=== PATIENT | male | born 1935 | race Two or more races ===

== ENCOUNTER 2020-07-03 13:17 | Emergency (ER) | payer OTHER ==
[~2020-07-03] VITALS: Ht 160 cm; Wt 54.4 kg
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
--- NOTE | 2020-07-03 13:30 | NUR ---
PT [phone]
--- NOTE | 2020-07-03 14:00 | NUR ---
PT IN CT
--- NOTE | 2020-07-03 14:20 | NUR ---
[facility]=[phone]
[2020-07-03] MEDS ORDERED: FLUORESCEIN SODIUM OPHTH 1 EA STRIP ONE (14:33)
[2020-07-03] MEDS ORDERED: FLUORESCEIN SODIUM OPHTH 1 EA STRIP OP ONE (15:00)
--- NOTE | 2020-07-03 15:25 | NUR ---
ORDER RECEIVED TO PLACE PT IN [facility]
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
--- NOTE | 2020-07-03 15:47 | NUR ---
MRI QUESTIONAIRE OBTAINED FROM PT. AND NOW HEADING TO MRI ON WHEELCHAIR.
--- NOTE | 2020-07-03 16:31 | NUR ---
back from mri
--- NOTE | 2020-07-03 18:20 | NUR ---
[facility] CALLED TO INFORM THAT PT IS CLEARED FOR DISCHARGE AND NEEDS TO BE PICKED UP.
[2020-07-03] MEDS ORDERED: TRAM50TA2 PO (18:24)
--- NOTE | 2020-07-03 18:24 | NUR ---
SHARA FROM [facility] FOLLOWED UP ON PT.
[2020-07-03] MEDS ORDERED: ACETAMINOPHEN 325 MG TABLET ONE (18:26)
[2020-07-03] MEDS ORDERED: ACETAMINOPHEN 325 MG TABLET PO ONE (18:30)
[2020-07-03 18:42] VITALS: BP 159/71
--- NOTE | 2020-07-03 18:42 | NUR ---
Patient discharged to home in stable condition. Written and verbal after care instructions given. Patient verbalizes understanding of instruction. Pt ambulatory with a steady gait.
== END 2020-07-03 18:49 | disposition home or self-care (01) ==
LOC: ER 13:20
DX: S00.11XA Contusion of right eyelid and periocular area, initial encounter (principal); S09.8XXA Other specified injuries of head, initial encounter; H11.31 Conjunctival hemorrhage, right eye; I10 Essential (primary) hypertension; Z88.0 Allergy status to penicillin; V32.9XXA Unspecified occupant of three-wheeled motor vehicle injured in collision with two- or three-wheeled motor vehicle in traffic accident, initial encounter; Y93.89 Activity, other specified; Y92.413 State road as the place of occurrence of the external cause; Y99.8 Other external cause status
CPT/HCPCS: 70450; 70486; 71045; 72125; 72141; 99285; L0172 ×2